=== PATIENT | male | born 1975 | race African-American/Black ===

== ENCOUNTER 2022-04-21 04:30 | Emergency (ER) | payer SELFPAY ==
[2022-04-21] MEDS ORDERED: ASPIRIN 81 MG CHEWABLE TABLET ONE (05:10)
[2022-04-21 05:17] LABS: Absolute Lymphocytes (CBC) 1.8 K/uL (0.7-4.9); Hematocrit 38.2 % (39.6-49.0); Lymphocytes % 17.7 % (15.3-44.8); MCV 80.3 fL (80-100); MPV 6.4 fL (7.6-11.3); RBC Red Blood Cell Count 4.76 M/uL (4.33-5.43)
[2022-04-21 05:47] LABS: Potassium 3.9 mmol/L (3.5-5.1); Troponin High Sensitivity 6.8 pg/mL (<58.9)
--- NOTE | 2022-04-21 06:12 | EDPHYS ---
Physician Documentation [facility] Name: Mendoza Jo Age: 47 yrs Sex: Male : 1975 Arrival Date: 04/21/2022 Time: 04:40 Bed 5 Private MD: ED Physician Walter Pitts HPI: 04/21 04:54 This 47 yrs old Black Male presents to ER via Unassigned with complaints of Chest ms3 Pressure, Headache, Dizziness. 04:54 47-year-old male with no past medical history presents for 2 days of chest pressure. ms3 Patient rates his pressure an 8/10 located substernally. Patient denies alleviating or inciting factors. Patient endorses nausea, vomiting and chills. Patient denies shortness of breath, fever.. Historical: - Allergies: 04:54 No Known Allergies; as6 - Home Meds: 04:54 None [Active]; as6 - PMHx: 04:54 None; as6 - PSHx: 04:54 None; as6 - Immunization history:: Client reports having NOT received the Covid vaccine. - Social history:: Smoking status: Patient reports the use of cigarette tobacco products, denies chronic smoking, but will smoke occasionally, Reported history of juuling and/or vaping. ROS: 04:54 Constitutional: Negative for fever, and chills. Neck: Negative for injury, pain, and ms3 swelling, Respiratory: Negative for shortness of breath, cough, wheezing, and pleuritic chest pain, Abdomen/GI: Negative for abdominal pain, nausea, vomiting, diarrhea, and constipation, MS/Extremity: Negative for injury and deformity, Skin: Negative for injury, rash, and discoloration, Neuro: Negative for headache, weakness, numbness, tingling. Hematologic/Lymphatic: Negative for swollen nodes, abnormal bleeding, and unusual bruising. 04:54 Cardiovascular: Positive for chest pain. 04:54 All other systems are negative. Exam: 04:54 Constitutional: This is a well developed, well nourished patient who is awake, alert, ms3 and in no acute distress. Head/Face: Normocephalic, atraumatic. Neck: Trachea midline, no cervical lymphadenopathy. Supple, full range of motion without nuchal rigidity, or vertebral point tenderness. No Meningismus. Chest/axilla: Normal chest wall appearance and motion. Nontender with no deformity. Cardiovascular: Regular rate and rhythm with a normal S1 and S2. No gallops, murmurs, or rubs. Normal PMI, no JVD. No pulse deficits. Respiratory: Lungs have equal breath sounds bilaterally, clear to auscultation and percussion. No rales, rhonchi or wheezes noted. No increased work of breathing, no retractions or nasal flaring. Abdomen/GI: Soft, non-tender, with normal bowel sounds. No distension or tympany. No guarding or rebound. No evidence of tenderness throughout. Skin: Warm, dry with normal turgor. Normal color with no rashes, no lesions, and no evidence of cellulitis. MS/ Extremity: Pulses equal, no cyanosis. Neurovascular intact. Full, normal range of motion. Psych: Awake, alert, with orientation to person, place and time. Behavior, mood, and affect are within normal limits. 04:58 ECG was reviewed by the Attending Physician. ms3 Vital Signs: 04:45 BP 160 / 86; Pulse 82; Resp 19 S; Pulse Ox 98% on R/A; aa9 04:52 BP 160 / 86; Pulse 87; Resp 16 S; Temp 99.0(TE); Pulse Ox 99% on R/A; Weight 79.38 kg as6 (R); Height 5 ft. 7 in. (170.18 cm) (R); Pain 8/10; 05:00 BP 137 / 91; Pulse 87; Resp 16; Pulse Ox 98% on R/A; aa9 05:15 BP 123 / 83; Pulse 82; Resp 17 S; Pulse Ox 99% on R/A; aa9 05:30 BP 129 / 81; Pulse 78; Resp 16 S; Pulse Ox 96% on R/A; aa9 05:45 BP 146 / 86; Pulse 82; Resp 17 S; Pulse Ox 99% on R/A; aa9 04:52 Body Mass Index 27.41 (79.38 kg, 170.18 cm) as6 MDM: 04:50 Patient medically screened. ms3 04:54 Differential diagnosis: abnormal EKG, acute myocardial infarction, coronary artery ms3 disease chest wall pain. The patient was given aspirin in the Emergency Department. 06:12 HEART Score: History: Slightly Suspicious (0), ECG: Normal (0), Age: > 45 and < 65 ms3 years (1), Risk Factors: No Risk Factors Known (0), Troponin: Total Score = 1. Data reviewed: vital signs, nurses notes. Counseling: I had a detailed discussion with the patient and/or guardian regarding: the historical points, exam findings, and any diagnostic results supporting the discharge/admit diagnosis, lab results, radiology results, the need for outpatient follow up, to return to the emergency department if symptoms worsen or persist or if there are any questions or concerns that arise at home. Special discussion: Based on the patient's history, exam, and Dx evaluation, there is no indication for emergent intervention or inpatient Tx. It is understood by the patient/guardian that if the Sx's persist or worsen they need to return immediately for re-evaluation. 04/21 04:53 Order name: Basic Metabolic Panel; Complete Time: 05:48 ms3 04/21 04:53 Order name: CBC with Diff; Complete Time: 05:48 ms3 04/21 04:53 Order name: Troponin HS; Complete Time: 05:48 ms3 04/21 04:53 Order name: XRAY Chest (1 view) ms3 04/21 04:53 Order name: Cardiac monitoring; Complete Time: 04:56 ms3 04/21 04:53 Order name: EKG - Nurse/Tech; Complete Time: 05:03 ms3 04/21 04:53 Order name: IV Saline Lock; Complete Time: 05:11 ms3 04/21 04:53 Order name: Labs collected and sent; Complete Time: 05:11 ms3 04/21 04:53 Order name: O2 Per Protocol; Complete Time: 04:56 ms3 04/21 04:53 Order name: O2 Sat Monitoring; Complete Time: 04:56 ms3 EC:58 Rate is 81 beats/min. Rhythm is regular. QRS [place] is Normal. [place] interval is normal. QRS ms3 interval is normal. Clinical impression: Normal ECG. Interpreted by me. Reviewed by me. Administered Medications: 05:11 Drug: Aspirin Chewable Tablet 324 mg Route: PO; as6 Disposition Summary: 04/21/22 06:11 Discharge Ordered Location: Home ms3 Condition: Stable ms3 Diagnosis - Chest pain, unspecified ms3 - Elevated blood-pressure reading, without diagnosis of hypertension ms3 Followup: ms3 - With: Henrique Young MD - When: 1 - 2 days - Reason: Re-evaluation by your physician Discharge Instructions: - Discharge Summary Sheet ms3 - Nonspecific Chest Pain, Adult ms3 Forms: - Medication Reconciliation Form ms3 - Thank You Letter ms3 - Antibiotic Education ms3 - Prescription Opioid Use ms3 Signatures: Dispatcher [employer] EDWalter Oneil DO DO ms3 Hugh Multani RN RN as6
--- NOTE | 2022-04-21 06:12 | ER ---
Nurse's Notes [facility] Name: Mendoza Jo Age: 47 yrs Sex: Male : 1975 Arrival Date: 04/21/2022 Time: 04:40 Bed 5 Private MD: Diagnosis: Chest pain, unspecified;Elevated blood-pressure reading, without diagnosis of hypertension Presentation: 04/21 04:52 Chief complaint: Patient states: "I started having chest pressure yesterday and it as6 hasn't stopped. I feel like I'm floating" pt also reports n/v. Coronavirus screen: Client presents with at least one sign or symptom that may indicate coronavirus-19. Ebola Screen: No symptoms or risks identified at this time. Initial Sepsis Screen: Does the patient meet any 2 criteria? No. Patient's initial sepsis screen is negative. Does the patient have a suspected source of infection? No. Patient's initial sepsis screen is negative. Risk Assessment: Do you want to hurt yourself or someone else? Patient reports no desire to harm self or others. Onset of symptoms was April 19, 2022. 04:52 Method Of Arrival: Ambulatory as6 04:52 Acuity: PEDRO 3 as6 Historical: - Allergies: 04:54 No Known Allergies; as6 - Home Meds: 04:54 None [Active]; as6 - PMHx: 04:54 None; as6 - PSHx: 04:54 None; as6 - Immunization history:: Client reports having NOT received the Covid vaccine. - Social history:: Smoking status: Patient reports the use of cigarette tobacco products, denies chronic smoking, but will smoke occasionally, Reported history of juuling and/or vaping. Screenin:56 Abuse screen: Denies threats or abuse. Denies injuries from another. Nutritional as6 screening: No deficits noted. Tuberculosis screening: No symptoms or risk factors identified. Fall Risk None identified. Assessment: 04:55 General: Appears in no apparent distress. Behavior is calm, cooperative. Pain: as6 Complains of pain in chest Quality of pain is described as pressure. Neuro: Level of Consciousness is awake, alert. Cardiovascular: Reports chest pain. Respiratory: Respiratory effort is even, unlabored. GI: Reports nausea, vomiting. 06:42 Reassessment: Patient appears in no apparent distress at this time. Patient and/or jb4 family updated on plan of care and expected duration. Pain level reassessed. Patient is alert, oriented x 3, equal unlabored respirations, skin warm/dry/pink. Vital Signs: 04:45 BP 160 / 86; Pulse 82; Resp 19 S; Pulse Ox 98% on R/A; aa9 04:52 BP 160 / 86; Pulse 87; Resp 16 S; Temp 99.0(TE); Pulse Ox 99% on R/A; Weight 79.38 kg as6 (R); Height 5 ft. 7 in. (170.18 cm) (R); Pain 8/10; 05:00 BP 137 / 91; Pulse 87; Resp 16; Pulse Ox 98% on R/A; aa9 05:15 BP 123 / 83; Pulse 82; Resp 17 S; Pulse Ox 99% on R/A; aa9 05:30 BP 129 / 81; Pulse 78; Resp 16 S; Pulse Ox 96% on R/A; aa9 05:45 BP 146 / 86; Pulse 82; Resp 17 S; Pulse Ox 99% on R/A; aa9 04:52 Body Mass Index 27.41 (79.38 kg, 170.18 cm) as6 ED Course: 04:40 Patient arrived in ED. ja2 04:42 Walter Pitts DO is Attending Physician. ms3 04:54 Triage completed. as6 04:55 Arm band placed on. as6 04:56 Bed in low position. Call light in reach. Side rails up X 1. Client placed on as6 continuous cardiac and pulse oximetry monitoring. NIBP monitoring applied. 05:02 Mimi Feng, RN is Primary Nurse. aa9 05:09 XRAY Chest (1 view) In Process Unspecified. EDMS 05:11 Inserted saline lock: 18 gauge in right forearm, using aseptic technique. Blood as6 collected. 06:10 Henrique Young MD is Referral Physician. ms3 06:42 No provider procedures requiring assistance completed. IV discontinued, intact, jb4 bleeding controlled, No redness/swelling at site. Pressure dressing applied. Administered Medications: 05:11 Drug: Aspirin Chewable Tablet 324 mg Route: PO; as6 Medication: 06:42 VIS not applicable for this client. jb4 Outcome: 06:11 Discharge ordered by . ms3 06:42 Discharged to home ambulatory. jb4 06:42 Condition: stable 06:42 Discharge instructions given to patient, Instructed on discharge instructions, follow up and referral plans. Demonstrated understanding of instructions, follow-up care. 06:43 Patient left the ED. jb4 Signatures: Dispatcher [employer] EDMS Marquise Ayoub RN RN jb4 Walter Pitts DO DO ms3 Randa Rivera2 Hugh Multani RN RN as6 Mimi Feng RN RN aa9
--- NOTE | 2022-04-21 11:56 | RAD REPORT ---
EXAM DESCRIPTION: RAD - Chest Single View - 04/21/2022 5:08 am CLINICAL HISTORY: The patient is 47 years old and is Male; CHEST PAIN TECHNIQUE: Frontal view of the chest. COMPARISON: No relevant prior studies available. FINDINGS: LUNGS: Unremarkable. No consolidation. PLEURAL SPACE: Unremarkable. No pleural effusion. No pneumothorax. HEART: Unremarkable. No cardiomegaly. MEDIASTINUM: Unremarkable. BONES/JOINTS: Degenerative changes of the bilateral shoulders. IMPRESSION: No acute chest abnormality. Electronically signed by: Rachid Liang MD 04/21/2022 5:17 AM CDT Due to temporary technical issues with the PACS/Fluency reporting system, reports are being signed by the in house radiologists without review as a courtesy to insure prompt reporting. The interpreting radiologist is fully responsible for the content of the report.
[2022-04-22 13:16] VITALS: O2SAT 99
[2022-04-22 13:25] VITALS: BP 160/86; TEMP 99
--- NOTE | 2022-04-23 13:42 | EKG ---
Test Date: 2022-04-21 Test Time: 04:58:23 [employer] Operator: MEASUREMENT RESULTS: Intervals: Rate: 81 AK: 154 QRSD: 74 QT: 394 QTc: 457 [place]: P: 82 AK: 154 QRS: 77 T: 28 INTERPRETIVE STATEMENTS: Normal sinus rhythm Normal ECG No previous ECG available for comparison Electronically Signed On 04-23-22 13:39:17 CDT by Israel Root
== END 2022-04-21 06:43 | disposition home or self-care (01) ==
LOC: ER 04:30
DX: R07.89 Other chest pain (principal); R03.0 Elevated blood-pressure reading, without diagnosis of hypertension; F17.210 Nicotine dependence, cigarettes, uncomplicated
CPT/HCPCS: 36415; 71045; 80048; 84484; 85025; 93005; 99284